=== PATIENT | female | born 1965 | race Caucasian/White ===

== ENCOUNTER 2018-09-10 09:14 | Observation (INO) | payer OTHER ==
[2018-09-10 09:22] VITALS: BMI 23.0
[2018-09-10] MEDS ORDERED: Sodium Chloride 0.9% 1,000 ML IV STA (09:53)
--- NOTE | 2018-09-10 09:56 | ED PDOC ---
HPI: Chest Pain Time Seen by Provider: 09/10/18 09:18 Chief Complaint (Nursing): Chest Pain Chief Complaint (Provider): Chest pain History Per: Patient History/Exam Limitations: no limitations Onset/Duration Of Symptoms: Days (today) Current Symptoms Are (Timing): Still Present Additional Complaint(s): Pt. with chest pain sternal like a pressure that started today morning. No dyspnea, weakness, headaches, dizziness, numbness, tingles. No abd pain, leg pain, long distance travel, or hormone use. Past Medical History Reviewed: Nursing Documentation, Vital Signs Vital Signs: Last Vital Signs Temp 96.1 F L 09/10/18 09:22 Pulse 90 09/10/18 09:22 Resp 17 09/10/18 09:22 BP 138/75 09/10/18 09:22 Pulse Ox 100 09/10/18 09:22 - Medical History PMH: No Chronic Diseases - Surgical History Surgical History: No Surg Hx - Family History Family History: States: Unknown Family Hx - Allergies Allergies/Adverse Reactions: Allergies Allergy/AdvReac Type Severity Reaction Status Date / Time No Known Allergies Allergy Verified 09/10/18 09:24 Review of Systems ROS Statement: Except As Marked, All Systems Reviewed And Found Negative Cardiovascular: Positive for: Chest Pain Physical Exam - Reviewed Nursing Documentation Reviewed: Yes Vital Signs Reviewed: Yes - Physical Exam Appears: Positive for: Non-toxic, No Acute Distress Head Exam: Positive for: ATRAUMATIC, NORMAL INSPECTION, NORMOCEPHALIC Skin: Positive for: Normal Color, Warm, DRY Eye Exam: Positive for: EOMI, Normal appearance, PERRL ENT: Positive for: Normal ENT Inspection Neck: Positive for: Normal, Painless ROM Cardiovascular/Chest: Positive for: Regular Rate, Rhythm. Negative for: Edema Respiratory: Positive for: CNT, Normal Breath Sounds Gastrointestinal/Abdominal: Positive for: Normal Exam, Soft. Negative for: Ten derness Back: Positive for: Normal Inspection. Negative for: L CVA Tenderness, R CVA Tenderness Extremity: Positive for: Normal ROM. Negative for: Tenderness, Pedal Edema Neurological/Psych: Positive for: Awake, Alert, Normal Tone - Laboratory Results Result Diagrams: 09/10/18 10:35 09/10/18 10:35 Lab Results: no acute - ECG ECG: Positive for: Interpreted By Me, Viewed By Me ECG Rhythm: Positive for: Normal QRS, Normal ST Segment, Sinus Rhythm O2 Sat by Pulse Oximetry: 100 Pulse Ox Interpretation: Normal - Radiology X-Ray: Read By Radiologist X-Ray Interpretation: No Acute Disease - Progress ED Course And Treament: PCP Dr. Muñoz. [id number]: Spoke with Dr. Tolbert. Will admit tele obs. Pain free. AAOX3. Disposition - Clinical Impression Clinical Impression: Chest pain - Patient ED Disposition Is Patient to be Admitted: No Counseled Patient/Family Regarding: Studies Performed, Diagnosis - Disposition Disposition Time: 09:45 Condition: FAIR - Pt Status Changed To: Hospital Disposition Of: Observation - POA Present On Arrival: None
[2018-09-10] MEDS ORDERED: Aspirin 325 mg EC Tablets PO ONE (10:02)
[2018-09-10 10:53] LABS: ALB/GLOB RATIO 1.5 (1.0-2.1); ALBUMIN 4.7 g/dL (3.5-5.0); ALT/SGPT 21 U/L (9-52); AST/SGOT 22 U/L (14-36); BLOOD UREA NITROGEN 15 mg/dl (7-17); CALCIUM 9.6 mg/dL (8.4-10.2); GFR NON-AFRICAN AMERICAN > 60
[2018-09-10 10:58] LABS: BASO # 0.1 K/uL (0.0-0.2); BASO % 1.2 % (0.0-2.0); EOS # 0.3 K/uL (0.0-0.7); EOS % 4.3 % (0.0-4.0); LYMPH # 1.7 K/uL (1.0-4.3); LYMPH % 21.4 % (20.0-40.0); MEAN CELL VOLUME 94.9 fl (81.0-99.0); MEAN CORPUSCULAR HEMOGLOBIN 32.1 pg (27.0-31.0); MEAN CORPUSCULAR HGB CONC 33.9 g/dL (33.0-37.0); MEAN PLATELET VOLUME 8.5 fl (7.2-11.7); MONO # 0.5 K/uL (0.0-0.8); MONO % 5.8 % (0.0-10.0); NEUT # 5.4 K/uL (1.8-7.0); NEUT % 67.3 % (50.0-75.0); NRBC % 0.1 % (0.0-0.0); RBC 4.36 Mil/uL (3.80-5.20); RED CELL DISTRIBUTION WIDTH 13.4 % (11.5-14.5)
--- NOTE | 2018-09-10 10:58 | RAD ---
Date of service: 09/10/2018 HISTORY: Pain COMPARISON: No prior. FINDINGS: LUNGS: No active pulmonary disease. PLEURA: No significant pleural effusion identified, no pneumothorax apparent. CARDIOVASCULAR: No aortic atherosclerotic calcification present. Normal cardiac size. No pulmonary vascular congestion. OSSEOUS STRUCTURES: No significant abnormalities. VISUALIZED UPPER ABDOMEN: Normal. OTHER FINDINGS: None. IMPRESSION: No active disease.
[2018-09-10 11:09] LABS: PARTIAL THROMBOPLASTIN TIME 24.9 Seconds (25.6-37.1)
[2018-09-10 12:06] LABS: D DIMER < 200 ng/mlDDU (0-230)
--- NOTE | 2018-09-10 16:13 | CP.PCM.HP ---
History of Present Illness - History of Present Illness History of Present Illness: Chief complaint: Chest pain History of present illness: A 53 years old female asking past medical history presented with Retrosternal c hest pain, pressure-like, with radiation to the arms. Denies associated dyspnea, diaphoresis, lightheadeness or palpitation. Denies cough or fever/chills. Present on Admission - Present on Admission Any Indicators Present on Admission: No Review of Systems - Review of Systems All systems: reviewed and no additional remarkable complaints except Review of Systems: as per HPI Past Patient History - Past Medical History & Family History Past Medical History?: No Pertinent Family History: Mother- CAD in 80's Sister- Open Heart surgery for Benign Tumor most likely Atrial Myxoma - Past Social History Smoking Status: Never Smoked Alcohol: Social Drugs: Denies - CARDIAC Hx Cardiac Disorders: No - PULMONARY Hx Respiratory Disorders: No - NEUROLOGICAL Hx Neurological Disorder: No - HEENT Hx HEENT Problems: No - RENAL Hx Chronic Kidney Disease: No - ENDOCRINE/METABOLIC Hx Endocrine Disorders: No - HEMATOLOGICAL/ONCOLOGICAL Hx Blood Disorders: No - INTEGUMENTARY Hx Dermatological Problems: No - MUSCULOSKELETAL/RHEUMATOLOGICAL Hx Musculoskeletal Disorders: No - GENITOURINARY/GYNECOLOGICAL Hx Genitourinary Disorders: No - PSYCHIATRIC Hx Psychophysiologic Disorder: No - SURGICAL HISTORY Hx Surgeries: No Other/Comment: [place] Teeth removal - ANESTHESIA Hx Anesthesia: Yes Hx Anesthesia Reactions: No Meds Allergies/Adverse Reactions: Allergies Allergy/AdvReac Type Severity Reaction Status Date / Time No Known Allergies Allergy Verified 09/10/18 09:24 Physical Exam - Constitutional Appears: Well, No Acute Distress - Head Exam Head Exam: ATRAUMATIC, NORMAL INSPECTION, NORMOCEPHALIC - Eye Exam Eye Exam: EOMI, Normal appearance, PERRL Pupil Exam: NORMAL ACCOMODATION, PERRL - ENT Exam ENT Exam: Mucous Membranes Moist, Normal Exam - Neck Exam Neck exam: Positive for: Normal Inspection - Respiratory Exam Respiratory Exam: Clear to Auscultation Bilateral, NORMAL BREATHING PATTERN Additional comments: Chest tenderness. - Cardiovascular Exam Cardiovascular Exam: REGULAR RHYTHM, +S1, +S2 - GI/Abdominal Exam GI & Abdominal Exam: Normal Bowel Sounds, Soft. absent: Tenderness - Extremities Exam Extremities exam: Positive for: normal inspection - Back Exam Back exam: NORMAL INSPECTION - Neurological Exam Neurological exam: Alert, CN II-XII Intact, Normal Gait, Oriented x3, Reflexes Normal - Psychiatric Exam Psychiatric exam: Normal Affect, Normal Mood - Skin Skin Exam: Dry, Intact, Normal Color, Warm Results - Vital Signs Recent Vital Signs: Last Vital Signs Temp 98.5 F 09/10/18 15:54 Pulse 73 09/10/18 15:54 Resp 18 09/10/18 15:54 BP 91/49 L 09/10/18 15:54 Pulse Ox 95 09/10/18 15:54 - Labs Result Diagrams: 09/10/18 10:35 09/10/18 10:35 Labs: Laboratory Results - last 24 hr 09/10/18 09/10/18 09/10/18 10:35 10:35 10:35 WBC 8.0 RBC 4.36 Hgb 14.0 Hct 41.3 MCV 94.9 MCH 32.1 H MCHC 33.9 RDW 13.4 Plt Count 311 MPV 8.5 Neut % (Auto) 67.3 Lymph % (Auto) 21.4 [place] % (Auto) 5.8 Eos % (Auto) 4.3 H Baso % (Auto) 1.2 Neut # (Auto) 5.4 Lymph # (Auto) 1.7 [place] # (Auto) 0.5 Eos # (Auto) 0.3 Baso # (Auto) 0.1 PT 11.0 INR 1.0 APTT 24.9 L D-Dimer, Quantitative < 200 Sodium 138 Potassium 3.6 Chloride 102 Carbon Dioxide 25 Anion Gap 15 BUN 15 Creatinine 0.6 L Est GFR ( Amer) > 60 Est GFR (Non-Af Amer) > 60 Random Glucose 97 Calcium 9.6 Total Bilirubin 0.5 AST 22 ALT 21 Alkaline Phosphatase 51 Troponin I < 0.0120 Total Protein 7.8 Albumin 4.7 Globulin 3.2 Albumin/Globulin Ratio 1.5 - Imaging and Cardiology Chest x-ray Status: Report reviewed by me Additional comment: Date of service: 09/10/2018 HISTORY: Pain COMPARISON: No prior. FINDINGS: LUNGS: No active pulmonary disease. PLEURA: No significant pleural effusion identified, no pneumothorax apparent. CARDIOVASCULAR: No aortic atherosclerotic calcification present. Normal cardiac size. No pulmonary vascular congestion. OSSEOUS STRUCTURES: No significant abnormalities. VISUALIZED UPPER ABDOMEN: Normal. OTHER FINDINGS: None. IMPRESSION: No active disease. Assessment & Plan (1) Chest pain Assessment and Plan: WR/O ACS Most likely Atypical Status: Acute Comment: Monitor in telemetry. ASA. Serial trop and EKG. TTE. [employer] Developer Consult. NG PRN
--- NOTE | 2018-09-10 17:53 | CARD ---
APPROVED REPORT Date of service: 09/10/2018 EKG Measurement Heart [id number] <Conclusion> Normal sinus rhythm Normal ECG
[2018-09-11 04:57] VITALS: RESP 18
[2018-09-11] MEDS ORDERED: Pantoprazole 40 mg EC Tab PO SCH (09:00)
--- NOTE | 2018-09-11 09:30 | CP.PCM.CON ---
History of Present Illness - History of Present Illness History of Present Illness: 53 y/o w/f admitted with cheat pain Pain started yesterday at rest dull aching pain mid sternal area Pleuritic type of pain worse with deep inspiration and movement of her arms Pt is a runner and runs 4 miles w/o problems EKG: normal Echo: Normal EF: 60-65% Pt can be discharged Past Patient History - Past Medical History & Family History Past Medical History?: No - Past Social History Smoking Status: Never Smoked Alcohol: Social Drugs: Denies - CARDIAC Hx Cardiac Disorders: No - PULMONARY Hx Respiratory Disorders: No - NEUROLOGICAL Hx Neurological Disorder: No - HEENT Hx HEENT Problems: No - RENAL Hx Chronic Kidney Disease: No - ENDOCRINE/METABOLIC Hx Endocrine Disorders: No - HEMATOLOGICAL/ONCOLOGICAL Hx Blood Disorders: No - INTEGUMENTARY Hx Dermatological Problems: No - MUSCULOSKELETAL/RHEUMATOLOGICAL Hx Musculoskeletal Disorders: No - GENITOURINARY/GYNECOLOGICAL Hx Genitourinary Disorders: No - PSYCHIATRIC Hx Psychophysiologic Disorder: No - SURGICAL HISTORY Hx Surgeries: No Other/Comment: [place] Teeth removal - ANESTHESIA Hx Anesthesia: Yes Hx Anesthesia Reactions: No Meds Allergies/Adverse Reactions: Allergies Allergy/AdvReac Type Severity Reaction Status Date / Time No Known Allergies Allergy Verified 09/10/18 09:24 - Medications Medications: Current Medications Pantoprazole Sodium (Protonix Ec Tab) 40 mg PO DAILY COLTEN Last Admin: 09/11/18 09:12 Dose: 40 mg Physical Exam - Constitutional Appears: Well - Head Exam Head Exam: NORMAL INSPECTION - Eye Exam Eye Exam: Normal appearance - ENT Exam ENT Exam: Normal Exam - Respiratory Exam Respiratory Exam: NORMAL BREATHING PATTERN - Cardiovascular Exam Cardiovascular Exam: REGULAR RHYTHM Results - Vital Signs Recent Vital Signs: Last Vital Signs Temp 98.4 F 09/11/18 08:36 Pulse 67 09/11/18 08:36 Resp 18 09/11/18 08:36 BP 103/66 09/11/18 08:36 Pulse Ox 96 09/11/18 08:36 - Labs Result Diagrams: 09/10/18 10:35 09/10/18 10:35 Labs: Laboratory Results - last 24 hr 09/10/18 09/10/18 09/10/18 10:35 10:35 10:35 WBC 8.0 RBC 4.36 Hgb 14.0 Hct 41.3 MCV 94.9 MCH 32.1 H MCHC 33.9 RDW 13.4 Plt Count 311 MPV 8.5 Neut % (Auto) 67.3 Lymph % (Auto) 21.4 [place] % (Auto) 5.8 Eos % (Auto) 4.3 H Baso % (Auto) 1.2 Neut # (Auto) 5.4 Lymph # (Auto) 1.7 [place] # (Auto) 0.5 Eos # (Auto) 0.3 Baso # (Auto) 0.1 PT 11.0 INR 1.0 APTT 24.9 L D-Dimer, Quantitative < 200 Sodium 138 Potassium 3.6 Chloride 102 Carbon Dioxide 25 Anion Gap 15 BUN 15 Creatinine 0.6 L Est GFR ( Amer) > 60 Est GFR (Non-Af Amer) > 60 Random Glucose 97 Calcium 9.6 Total Bilirubin 0.5 AST 22 ALT 21 Alkaline Phosphatase 51 Troponin I < 0.0120 Total Protein 7.8 Albumin 4.7 Globulin 3.2 Albumin/Globulin Ratio 1.5 09/10/18 09/11/18 17:45 04:30 WBC RBC Hgb Hct MCV MCH MCHC RDW Plt Count MPV Neut % (Auto) Lymph % (Auto) [place] % (Auto) Eos % (Auto) Baso % (Auto) Neut # (Auto) Lymph # (Auto) [place] # (Auto) Eos # (Auto) Baso # (Auto) PT INR APTT D-Dimer, Quantitative Sodium Potassium Chloride Carbon Dioxide Anion Gap BUN Creatinine Est GFR ( Amer) Est GFR (Non-Af Amer) Random Glucose Calcium Total Bilirubin AST ALT Alkaline Phosphatase Troponin I < 0.0120 < 0.0120 Total Protein Albumin Globulin Albumin/Globulin Ratio Assessment & Plan (1) Pleuritic chest pain Assessment and Plan: Pt can be discharged Status: Acute
[2018-09-11 13:54] VITALS: BP 103/65; PULSE 68; TEMP 98; O2SAT 100
--- NOTE | 2018-09-11 15:03 | CARD ---
APPROVED REPORT Date of service: 09/11/2018 EXAM: Two-dimensional and M-mode echocardiogram with Doppler and color Doppler. Other Information Quality : GoodRhythm : NSR INDICATION Chest Pain R/O ACS 2D DIMENSIONS IVSd0.77 (0.7-1.1cm)LVDd4.28 (3.9-5.9cm) LVOT Diameter1.90 (1.8-2.4cm)PWd0.84 (0.7-1.1cm) IVSs1.10 (0.8-1.2cm)LA Gitefp32 (18-58mL) LVDs2.88 (2.5-4.0cm)FS (%) 32.6 % PWs1.21 (0.8-1.2cm) M-Mode DIMENSIONS Left Atrium (MM)2.99 (2.5-4.0cm)Aortic Root2.61 (2.2-3.7cm) Aortic Valve AoV Peak Zcqesakv797.7cm/sAoV VTI25.9cmAO Peak GR.7mmHg LVOT Peak Hnhlylwg94.2cm/sLVOT VTI19.28cmAO Mean GR.4mmHg JUSTINO (VMAX)1.17rg0PWX (VTI)1.31cm2 Mitral Valve MV E Mjogonof86.1cm/sMV DECEL BPCW289vhGU A Tcuiszle81.0cm/s MV RDG42hfD/A ratio1.6MVA (PHT)4.21cm2 TDI Lateral E' Peak V18.58cm/sMedial E' Peak V13.93cm/sE/Lateral E'3.8 E/Medial E'5.1 Pulmonary Valve RVOT VTI18.4cm Tricuspid Valve TR Peak Bjlhtpbf941mt/sTR Peak Gr.5omCoBLQG34laIt LEFT VENTRICLE The left ventricle is normal size. There is normal left ventricular wall thickness. The left ventricular systolic function is normal. The estimated ejection fraction is 60-65% No regional wall motion abnormalities noted.. The left ventricular diastolic function is normal. No left ventricle thrombus noted on this study. There is no ventricular septal defect visualized. There is no left ventricular aneurysm. There is no mass noted in the left ventricle. RIGHT VENTRICLE The right ventricle is normal size. There is normal right ventricular wall thickness. The right ventricular systolic function is normal. ATRIA The left atrium size is normal. The right atrium size is normal. The interatrial septum is intact with no evidence for an atrial septal defect. AORTIC VALVE The aortic valve is normal in structure. No aortic regurgitation is present. There is no aortic valvular stenosis. There is no aortic valvular vegetation. MITRAL VALVE The mitral valve is normal in structure. There is no evidence of mitral valve prolapse. There is no mitral valve stenosis. There is no mitral valve regurgitation noted. TRICUSPID VALVE The tricuspid valve is normal in structure. There is trivial tricuspid valve regurgitation noted. There is no tricuspid valve prolapse or vegetation. There is no tricuspid valve stenosis. PULMONIC VALVE The pulmonary valve is normal in structure. There is no pulmonic valvular regurgitation. There is no pulmonic valvular stenosis. GREAT VESSELS The aortic root is normal in size. The ascending aorta is normal in size. The pulmonary artery is normal. The IVC is normal in size and collapses >50% with inspiration. PERICARDIAL EFFUSION There is no pericardial effusion. There is no pleural effusion. <Conclusion> The estimated ejection fraction is 60-65% The left ventricular diastolic function is normal. The left atrium size is normal. There is trivial tricuspid valve regurgitation noted. The IVC is normal in size and collapses >50% with inspiration.
--- NOTE | 2018-09-12 04:41 | CP.PCM.DIS ---
Provider - Provider Date of Admission: 09/10/18 12:46 Attending physician: Natty Tolbert MD Consults: 09/10/18 17:11 Cardiology Consult Routine Comment: Consulting Provider: Mj Cutler V Consulting Physician: Mj Cutler V Reason for Consult: Chest Pain Time Spent in preparation of Discharge (in minutes): 25 Diagnosis - Discharge Diagnosis (1) Chest pain Status: Acute (2) Pleuritic chest pain Status: Acute Hospital Course - Lab Results Lab Results: Most Recent Lab Values WBC 8.0 K/uL (4.8-10.8) 09/10/18 10:35 RBC 4.36 Mil/uL (3.80-5.20) 09/10/18 10:35 Hgb 14.0 g/dL (12.0-16.0) 09/10/18 10:35 Hct 41.3 % (34.0-47.0) 09/10/18 10:35 MCV 94.9 fl (81.0-99.0) 09/10/18 10:35 MCH 32.1 pg (27.0-31.0) H 09/10/18 10:35 MCHC 33.9 g/dL (33.0-37.0) 09/10/18 10:35 RDW 13.4 % (11.5-14.5) 09/10/18 10:35 Plt Count 311 K/uL (130-400) 09/10/18 10:35 MPV 8.5 fl (7.2-11.7) 09/10/18 10:35 Neut % (Auto) 67.3 % (50.0-75.0) 09/10/18 10:35 Lymph % (Auto) 21.4 % (20.0-40.0) 09/10/18 10:35 [place] % (Auto) 5.8 % (0.0-10.0) 09/10/18 10:35 Eos % (Auto) 4.3 % (0.0-4.0) H 09/10/18 10:35 Baso % (Auto) 1.2 % (0.0-2.0) 09/10/18 10:35 Neut # (Auto) 5.4 K/uL (1.8-7.0) 09/10/18 10:35 Lymph # (Auto) 1.7 K/uL (1.0-4.3) 09/10/18 10:35 [place] # (Auto) 0.5 K/uL (0.0-0.8) 09/10/18 10:35 Eos # (Auto) 0.3 K/uL (0.0-0.7) 09/10/18 10:35 Baso # (Auto) 0.1 K/uL (0.0-0.2) 09/10/18 10:35 PT 11.0 Seconds (9.8-13.1) 09/10/18 10:35 INR 1.0 09/10/18 10:35 APTT 24.9 Seconds (25.6-37.1) L 09/10/18 10:35 D-Dimer, Quantitative < 200 ng/mlDDU (0-230) 09/10/18 10:35 Sodium 138 mmol/l (132-148) 09/10/18 10:35 Potassium 3.6 MMOL/L (3.6-5.0) 09/10/18 10:35 Chloride 102 mmol/L (98-107) 09/10/18 10:35 Carbon Dioxide 25 mmol/L (22-30) 09/10/18 10:35 Anion Gap 15 (10-20) 09/10/18 10:35 BUN 15 mg/dl (7-17) 09/10/18 10:35 Creatinine 0.6 mg/dl (0.7-1.2) L 09/10/18 10:35 Est GFR ( Amer) > 60 09/10/18 10:35 Est GFR (Non-Af Amer) > 60 09/10/18 10:35 Random Glucose 97 mg/dL (65-105) 09/10/18 10:35 Calcium 9.6 mg/dL (8.4-10.2) 09/10/18 10:35 Total Bilirubin 0.5 mg/dl (0.2-1.3) 09/10/18 10:35 AST 22 U/L (14-36) 09/10/18 10:35 ALT 21 U/L (9-52) 09/10/18 10:35 Alkaline Phosphatase 51 U/L (38-126) 09/10/18 10:35 Troponin I < 0.0120 ng/mL (0.00-0.120) 09/11/18 04:30 Total Protein 7.8 G/DL (6.3-8.2) 09/10/18 10:35 Albumin 4.7 g/dL (3.5-5.0) 09/10/18 10:35 Globulin 3.2 gm/dL (2.2-3.9) 09/10/18 10:35 Albumin/Globulin Ratio 1.5 (1.0-2.1) 09/10/18 10:35 Discharge Exam - Head Exam Head Exam: NORMAL INSPECTION Discharge Plan - Follow Up Plan Condition: GOOD Disposition: HOME/ ROUTINE Instructions: Chest Pain (DC) Additional Instructions: Follow up with primary doctor in 1 week.
--- NOTE | 2018-09-13 09:30 | CARD ---
APPROVED REPORT Date of service: 09/10/2018 EKG Measurement Heart [id number] <Conclusion> Normal sinus rhythm Normal ECG
== END 2018-09-11 14:42 | disposition home or self-care (01) ==
LOC: H.ER 09:14 → H.ERHOLD 12:46 → H.TEL 15:39
PROVIDERS: ADMIT Internal Medicine; ATTEND Internal Medicine
DX: R07.81 Pleurodynia (principal); Z82.49 Family history of ischemic heart disease and other diseases of the circulatory system
CPT/HCPCS: 36415; 71045; 80053; 81025; 84484; 85025; 85378; 85610; 85730; 93005; 93306; 96360; 99285; G0378; J7030